=== PATIENT | female | born 1970 | race Caucasian/White ===

== ENCOUNTER 2017-09-06 06:50 | Emergency (ER) | payer OTHER ==
[~2017-09-06] VITALS: Ht 172.7 cm; Wt 105.0 kg
[~2017-09-06 06:50] MED LIST: ASPI-556; LANTUS INSULIN; LISI-662; METF500T4; OMEP20TA25
[2017-09-06] MEDS ORDERED: LOSA25TA21 PO (06:54)
[2017-09-06] MEDS ORDERED: METF500T4 PO (06:54)
[2017-09-06] MEDS ORDERED: INSLAN SQ (06:54)
[2017-09-06] MEDS ORDERED: LOVA20 PO (06:54)
[2017-09-06 07:13] VITALS: BP 156/97
== END 2017-09-06 07:30 | disposition home or self-care (01) ==
LOC: EMS 06:52
DX: J03.90 Acute tonsillitis, unspecified (principal); E11.9 Type 2 diabetes mellitus without complications; I10 Essential (primary) hypertension; K21.9 Gastro-esophageal reflux disease without esophagitis; Z79.4 Long term (current) use of insulin
CPT/HCPCS: 82962; 99283

== ENCOUNTER 2022-07-18 09:17 | Emergency (ER) | payer OTHER ==
[~2022-07-18 09:17] MED LIST changes: +INSLAN SQ; -LANTUS INSULIN; -LISI-662; +LOSA-381 PO; +LOVA20TA73 PO; +METF-1211 PO; -METF500T4; +OMEP20TA20; -OMEP20TA25
== END 2022-07-18 10:55 | disposition left against medical advice (07) ==
LOC: EMS 09:17
DX: M79.601 Pain in right arm (principal); Z53.21 Procedure and treatment not carried out due to patient leaving prior to being seen by health care provider